=== PATIENT | female | born 1960 | race Caucasian/White ===

== ENCOUNTER → 2017-10-16 | Outpatient (CLI) | payer BC ==
--- NOTE | 2017-10-16 13:22 | RAD ---
Left RIBS with chest, 3 views, 10/16/2017: History: Fall, left rib pain No rib fracture is identified. There is a mild thoracolumbar scoliosis. There is a mild streaky left basilar opacity compatible with atelectasis versus scarring. No pneumothorax or pleural fluid is seen. The heart size is normal. IMPRESSION: 1. No acute left rib abnormality is detected. 2. Mild left basilar atelectasis.
== END | disposition home or self-care (01) ==
LOC: DXRAD 11:24
PROVIDERS: ATTEND Nurse Practitioner Family
DX: J98.11 Atelectasis (principal); M41.85 Other forms of scoliosis, thoracolumbar region; W19.XXXD Unspecified fall, subsequent encounter
CPT/HCPCS: 71101